=== PATIENT | female | born 1985 | race Caucasian/White ===

== ENCOUNTER 2017-02-06 10:21 | Emergency (ER) | payer OTHER ==
[~2017-02-06] VITALS: Ht 167.6 cm; Wt 66.8 kg
[2017-02-06 11:40] VITALS: BP 118/64
== END 2017-02-06 11:40 | disposition home or self-care (01) ==
LOC: ED 10:21
DX: S93.601A Unspecified sprain of right foot, initial encounter (principal); M41.9 Scoliosis, unspecified; X50.1XXA Overexertion from prolonged static or awkward postures, initial encounter; Y93.89 Activity, other specified; Y99.8 Other external cause status; Y92.89 Other specified places as the place of occurrence of the external cause
CPT/HCPCS: Q0092

== ENCOUNTER 2018-02-14 10:52 | Emergency (ER) | payer MEDICAID ==
[~2018-02-14] VITALS: Ht 165.1 cm; Wt 77.1 kg
[2018-02-14 10:59] VITALS: Ht 165.1 cm; Wt 77.1 kg
[2018-02-14 12:27] LABS: microscopic required? NO
[2018-02-14 12:38] LABS: BASOPHIL % 0.5 % (0-2); PLATELET COUNT 239 x10^3mcL (130-400)
[2018-02-14 12:47] LABS: RED CELL DISTRIBUTION WIDTH 18.7 % (11.5-14.5)
[2018-02-14 12:54] LABS: UA SPECIFIC GRAVITY 1.025 (1.005-1.035); urine erythrocyte NEGATIVE (NEGATIVE)
[2018-02-14 13:04] LABS: CALCIUM 8.1 mg/dL (8.5-10.1); CHLORIDE SERUM 106 mmol/L (98-107); CREATININE SERUM 0.6 mg/dL (0.6-1.0); GFR1 > 60 mL/min; GLUCOSE SERUM 68 mg/dL (74-106); POTASSIUM SERUM 3.2 mmol/L (3.5-5.1); SODIUM SERUM 140 mmol/L (136-145)
[2018-02-14 14:28] VITALS: BP 119/70
== END 2018-02-14 14:28 | disposition home or self-care (01) ==
LOC: ED 10:52
PROVIDERS: Emergency Medicine
DX: O34.81 Maternal care for other abnormalities of pelvic organs, first trimester (principal); N83.201 Unspecified ovarian cyst, right side; O26.891 Other specified pregnancy related conditions, first trimester; E87.6 Hypokalemia; Z3A.01 Less than 8 weeks gestation of pregnancy
CPT/HCPCS: 36415

== ENCOUNTER 2018-03-05 09:38 | Emergency (ER) | payer MEDICAID ==
[~2018-03-05] VITALS: Ht 165.1 cm; Wt 76.2 kg
[2018-03-05 09:47] VITALS: Ht 165.1 cm; Wt 76.2 kg
[2018-03-05 10:48] LABS: CALCIUM 8.3 mg/dL (8.5-10.1); CARBON DIOXIDE 23.7 mmol/L (21-32); CHLORIDE SERUM 103 mmol/L (98-107); CREATININE SERUM 0.5 mg/dL (0.6-1.0); GFR1 > 60 mL/min; GLUCOSE SERUM 82 mg/dL (74-106); POTASSIUM SERUM 3.7 mmol/L (3.5-5.1); SODIUM SERUM 137 mmol/L (136-145)
[2018-03-05 12:01] VITALS: BP 106/57
== END 2018-03-05 12:01 | disposition home or self-care (01) ==
LOC: ED 09:38
PROVIDERS: Emergency Medicine
DX: O21.0 Mild hyperemesis gravidarum (principal); Z3A.11 11 weeks gestation of pregnancy; M41.9 Scoliosis, unspecified; N83.201 Unspecified ovarian cyst, right side; K46.9 Unspecified abdominal hernia without obstruction or gangrene
CPT/HCPCS: J2405; J7030